=== PATIENT | male | born 1945 | race Caucasian/White ===

== ENCOUNTER → 2016-03-13 | Outpatient (CLI) | payer BC ==
--- NOTE | 2016-03-13 11:04 | DIAGNOSTIC IMAGING REPORT ---
ULTRASOUND TESTES AND SCROTUM CLINICAL HISTORY: Testicular pain. COMPARISON STUDY: Scrotal ultrasound dated 11/11/2007. TECHNIQUE: Real-time, grayscale, and color Doppler sonography of the testes and scrotum is performed. Images are reviewed in the transverse and longitudinal planes. FINDINGS: The testes are normal in size and homogeneous in echotexture. The right testis measures 5.0 x 2.4 x 3.4 cm and the left testis measures 5.2 x 2.4 x 3.3 cm. No intratesticular mass is seen. Testicular blood flow is normal and symmetric. Normal Doppler waveforms are identified in both testes. The epididymal heads are normal in appearance. The right epididymal head measures 1.0 cm in length and the left epididymal head measures 1.1 cm in length. A 9 mm right epididymal head cyst is incidentally noted. No varicocele or hydrocele is seen. IMPRESSION: Unremarkable sonographic assessment of the testes and scrotum. Electronically signed by: Rubén Manuel M.D. 03/13/2016 11:02 AM Dictated Date/Time: 03/13/2016 11:00 AM
== END | disposition home or self-care (01) ==
LOC: C.ULTRBC 10:15
PROVIDERS: ATTEND Urology
DX: N50.819 Testicular pain, unspecified (principal)

== ENCOUNTER → 2017-03-11 | Outpatient (CLI) | payer BC ==
[2017-03-11 11:13] LABS: HEMATOCRIT 48.2 % (42-52); HEMOGLOBIN 16.9 g/dL (14.0-18.0); MEAN CELL VOLUME 85.5 fL (80-100); MEAN CORPUSCULAR HGB CONC 35.1 g/dl (32-36); PLATELET COUNT 155 K/uL (130-400); RED CELL DISTRIBUTION WIDTH CV 14.7 % (11.5-14.5); RED CELL DISTRIBUTION WIDTH SD 45.6 fL (36.4-46.3); WHITE BLOOD COUNT 4.19 K/uL (4.8-10.8)
[2017-03-11 11:35] LABS: ALT/SGPT 51 U/L (12-78); BLOOD UREA NITROGEN 21 mg/dl (7-18); CALCIUM 9.1 mg/dl (8.5-10.1); CARBON DIOXIDE 28 mmol/L (21-32); CREATININE 1.25 mg/dl (0.60-1.40); GLUCOSE 101 mg/dl (70-99); POTASSIUM 4.1 mmol/L (3.5-5.1); SODIUM 141 mmol/L (136-145)
[2017-03-11 11:46] LABS: CHOLESTEROL 175 mg/dl (0-200); LDL CHOLESTEROL CALCULATED 100 mg/dl
== END | disposition home or self-care (01) ==
LOC: C.LABBC 07:56
PROVIDERS: ATTEND Family Medicine
DX: R03.0 Elevated blood-pressure reading, without diagnosis of hypertension (principal); N40.0 Benign prostatic hyperplasia without lower urinary tract symptoms; E78.2 Mixed hyperlipidemia; R97.20 Elevated prostate specific antigen [PSA]

== ENCOUNTER → 2017-03-25 | Outpatient (CLI) | payer BC ==
--- NOTE | 2017-03-25 08:46 | DIAGNOSTIC IMAGING REPORT ---
SOFT TISS HEAD/NECK-THYROID HISTORY: Thyroid enlargement NON TOXIC GOITER, THRYOID ENLARGEMENT COMPARISON: None. FINDINGS: Right lobe: Maximum dimension 3.9 cm. 5 mm low suspicion nodule. Left lobe: Maximum dimension 3.6 cm. No significant nodularity. Isthmus: No nodules. IMPRESSION: 1. 5 mm lower pole right thyroid nodule. 2. All remaining components of the study are normal. 3. A 12 month follow-up is suggested. The above report was generated using voice recognition software. It may contain grammatical, syntax or spelling errors. Electronically signed by: Etienne Jarvis M.D. 03/25/2017 8:44 AM Dictated Date/Time: 03/25/2017 8:41 AM
== END | disposition home or self-care (01) ==
LOC: C.ULTRBC 08:19
PROVIDERS: ATTEND Family Medicine
DX: E04.9 Nontoxic goiter, unspecified (principal)

== ENCOUNTER 2019-08-06 11:35 | Observation (INO) ==
--- NOTE | 2019-08-06 11:59 | Emergency Department Note ---
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 Patient was playing tennis with his friend and was charging the net and tripped and fell forward. He got his 1 hand out but was carrying the racquet and the other hand and hit his head off the ground. He had about 30 seconds worth of loss of consciousness. Following that he has been confused and does not remember the events of the trauma or the car ride over. He denies any headache, change in vision, neck pain, chest pain, belly pain or any extremity pain. He notes he does have some mild pain on the right head when he holds a bandage to his laceration. This occurred somewhere around 10:00. His friend did take him home and he cleaned him up and brought him to the ER after [employer] referred him in. ROS: See above HPI for pertinent positives & negatives. A total of 10 systems reviewed and were otherwise negative. PAST MEDICAL HISTORY:See Below PAST SURGICAL HISTORY:See Below FAMILY HISTORY:See Below SOCIAL HISTORY:See Below HOME MEDICATIONS:See Below ALLERGIES:See Below VITALS:See Below PHYSICAL EXAMINATION: GENERAL: alert, well appearing, well nourished, no distress, non-toxic HEAD: 3 cm laceration above the right eyebrow. Bruising around right lateral orbit EYE EXAM: normal conjunctiva, PERRL and EOM's grossly intact OROPHARYNX: no exudate, no erythema, lips, buccal mucosa, and tongue normal and mucous membranes are moist NECK: supple, no nuchal rigidity, no adenopathy, non-tender CHEST: stable to compression anteriorly and posteriorly LUNGS: clear to auscultation. Normal chest wall mechanics HEART: no murmurs, S1 normal and S2 normal ABDOMEN: abdomen soft, non-tender, normo-active bowel sounds, no masses, no rebound or guarding. PELVIS: stable to compression anteriorly and posteriorly BACK: Back is symmetrical on inspection and there is no deformity, no midline tenderness, no CVA tenderness. UPPER EXTREMITIES: full active and passive range of motion of all joints without tenderness to palpation LOWER EXTREMITIES: full active and passive range of motion of all joints without tenderness to palpation NEURO EXAM: Oriented to person, place and guesses on the year, does not remember the fall were any events thereafter as he has continued repeat of questioning cranial nerves II-XII grossly intact, normal speech, no gross weakness of arms, no gross weakness of legs. GCS: 14. MEDICAL DECISION MAKING: Patient is a 73-year-old male who presents the ER following a fall playing tennis with a positive loss consciousness. He has continually been confused si nce the incident. IV was status water was obtained. Labs show no significant leukocytosis or anemia. BMP with LFTs bilirubin and troponin was negative. UA was unremarkable. CT of the head, face and cervical spine showed no acute fractures. Chest x-ray unremarkable. Laceration was repaired by myself at the bedside using 2 sutures. Patient still has continued repetitive questioning. He does not remember getting a CT scan of his head. He does not remember the laceration on his face. 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 Daughter and friend do not believe that the daughter will be able to take care of both him and the mother. Discussed with the hospitalist for observation. Triage Nursing notes reviewed. Prior medical records reviewed Vital Signs: reviewed and remarkable for hypertension Differential diagnosis: Differential diagnoses include major intracranial, cervical, spinal, thoracic, abdominal, pelvic and neurologic injury. Fracture, contusion, sprain, strain, laceration, abrasions included as well. ER treatment provided: See below Diagnostics interpreted by me: ECG: Sinus rhythm rate 82 Right axis Incomplete right bundle Normal QTC Cardiac Monitoring: An order was placed for continuous cardiac monitoring. The monitor shows a rate of 90 with sinus rhythm. Laboratory studies: As stated above and show below. Imaging studies: CT of the head, cervical spine and facial bones show no acute fractures. Portable AP upright 1 view of the chest shows no focal infiltrate Consultation(s): Discussed with Dr. Theodore for observation. ED COURSE: Procedures: Laceration repair of right face: Wound measured 2.5cm. Lidocaine with epinephrine was infiltrated into the wound margins to provide local anesthesia. The wound was inspected for foreign bodies, tendon, artery and bone or joint involvement and none was found. The wound was irrigated with saline and closed with 2 suture(s) using 5.0 nylon sutures and a clean dressing was applied. The patient tolerated the procedure well. PDMP:reviewed and no issues Critical Care: None Past Med/Surg History Social History Preferred Language: Italian Communication Ability: Effective Concert Pianist Required: No Beliefs That Will Affect Care: None Current Living Situation: Spouse and Family Current Living Situation Comment: lives with and daughter Other Information That Helps Us Care for You: No Feels Safe at Home: Yes Safety Concerns: Feels Safe At This Time Smoking Status: Never smoker Do You Dip or Chew Tobacco: No ; Second Hand Exposure: No ; Tobacco Cessation Education Requested by Patient: No Hx Alcohol Use: No Hx Substance Use: No Allergies Allergies Allergy/AdvReac Type Severity Reaction Status Date / Time No Known Allergies Allergy Unverified 08/06/19 13:55 Home Meds Home Medications Medication Instructions Recorded Confirmed atorvastatin [Lipitor] 40 mg PO HS 08/06/19 08/06/19 lisinopril [Zestril] 10 mg PO HS 08/06/19 08/06/19 [id number] 1 tab PO HS 08/06/19 08/06/19 [Multivitamin 50 Plus] tamsulosin [Flomax] 0.4 mg PO HS 08/06/19 08/06/19 Results & Data (ED) Vital Signs Vital Signs - 24 hr 08/06/19 11:37 08/06/19 13:35 08/06/19 15:10 Temperature 36.5 C Temperature Source Oral Pulse Rate 100 H 92 H Pulse Rate [Apical] 82 Pulse Rate from SpO2 Sensor 91 H Pulse Rhythm Regular Pulse Rhythm [Apical] Regular Pulse Strength Normal Respiratory Rate 16 18 17 Respiratory Effort / Characteristics Non-Labored Non-Labored Spontaneous Respiratory Depth Normal Normal Respiratory Pattern Regular Regular Blood Pressure 182/95 H Blood Pressure [Right Arm] 160/94 H Blood Pressure Mean 124 Blood Pressure Mean [Right Arm] 116 Blood Pressure Position Sitting Pulse Oximetry 97 98 98 Oxygen Delivery Method Room Air Room Air Sepsis Recent Fever Within 48 Hours No Sepsis Action Taken by Nursing No Action Required Laboratory Data Result diagrams: 08/06/19 12:10 08/06/19 12:10 Lab Results 08/06/19 08/06/19 08/06/19 Range/Units 12:10 12:10 13:25 WBC 7.42 (4.8-10.8) K/uL RBC 5.53 (4.7-6.1) M/uL Hgb 16.2 (14.0-18.0) g/dL Hct 46.7 (42-52) % MCV 84.4 (80-100) fL MCH 29.3 (25-34) pg MCHC 34.7 (32-36) g/dL RDW Std Deviation 44.3 (36.4-46.3) fL RDW Coeff of Per 14.3 (11.5-14.5) % Plt Count 160 (130-400) K/uL MPV 9.1 (7.4-10.4) fL Immature Gran % (Auto) 0.3 % Neut % (Auto) 82.2 % Lymph % (Auto) 12.0 % [place] % (Auto) 4.7 % Eos % (Auto) 0.5 % Baso % (Auto) 0.3 % Immature Gran # (Auto) 0.02 (0.00-0.02) K/uL Neut # (Auto) 6.10 (1.4-6.5) K/uL Lymph # (Auto) 0.89 L (1.2-3.4) K/uL [place] # (Auto) 0.35 (0.11-0.59) K/uL Eos # (Auto) 0.04 (0-0.5) K/uL Baso # (Auto) 0.02 (0-0.2) K/uL Sodium 141 (136-145) mmol/L Potassium 3.7 (3.5-5.1) mmol/L Chloride 107 (98-107) mmol/L Carbon Dioxide 27 (21-32) mmol/L Anion Gap 7.0 (3-11) BUN 21 H (7-18) mg/dl Creatinine 1.27 (0.6-1.4) mg/dl Est Cr Clr Drug Dosing 46.0 ml/min Est GFR ( Amer) 64.1 Est GFR (Non-Af Amer) 55.3 BUN/Creatinine Ratio 16.8 (10-20) Glucose 141 H (70-99) mg/dl Calcium 9.6 (8.5-10.1) mg/dl Total Bilirubin 0.5 (0.2-1) mg/dl AST 26 (15-37) U/L ALT 43 (12-78) U/L Alkaline Phosphatase 40 L (45-117) U/L Troponin I < 0.015 (0-0.045) ng/ml Total Protein 7.3 (6.4-8.2) gm/dl Albumin 3.9 (3.4-5.0) gm/dl Globulin 3.4 (2.5-4.0) gm/dl Albumin/Globulin Ratio 1.2 (0.9-2) Urine Color Yellow Urine Appearance Clear (Clear) Urine pH 6.0 (4.5-7.5) Ur Specific [place] 1.021 (1.000-1.030) Urine Protein Negative (Negative) Urine Glucose (UA) Negative (Negative) Urine Ketones Negative (Negative) Urine Blood Negative (Negative) Urine Nitrite Negative (Negative) Urine Bilirubin Negative (Negative) Urine Urobilinogen Negative (Negative) Ur Leukocyte Esterase Negative (Negative) Administered Medications Discontinued Medications Sodium Chloride (Nss 1000ml) 1,000 mls @ 999 mls/hr IV .Q1H1M BC Stop: 08/06/19 13:00 Last Infusion: 08/06/19 13:25 Dose: 0 mls/hr Documented by: [id number] Admin: 08/06/19 12:20 Dose: 999 mls/hr Documented by: [id number] Lidocaine/Epinephrine (Buffered Xylocaine/Epinephrine 1%) Confirm Administered Dose 20 ml .ROUTE .STK-MED ONE Stop: 08/06/19 13:26 Last Admin: 08/06/19 14:07 Dose: 20 ml Documented by: [id number] Discharge Plan Visit Data Chief Complaint: Laceration/Cut (Suture/Dermabond) Stated Complaint: HEAD LACERATION ABOVE RT EYE AND RT HAND INJURY ED Provider: [place] Valentine Discharge Problem: Concussion, Laceration, Fall, Acute confusion Forms Stand Alone Forms: My [facility] Prescriptions Prescriptions: No Action atorvastatin [Lipitor] 40 mg tablet 40 mg PO HS RF: 0 tamsulosin [Flomax] 0.4 mg capsule 0.4 mg PO HS RF: 0 lisinopril [Zestril] 10 mg tablet 10 mg PO HS RF: 0 Multivitamin 50 Plus Tablet 1 tab PO HS RF: 0 Discharge Problem: Concussion Qualifiers: Encounter type: initial encounter Loss of consciousness presence/duration: with LOC of 30 min or less Qualified Code(s): S06.0X1A - Concussion with loss of consciousness of 30 minutes or less, initial encounter Fall Qualifiers: Encounter type: initial encounter Qualified Code(s): W19.XXXA - Unspecified fall, initial encounter
[2019-08-06] MEDS ORDERED: SODIUM CHLORIDE 0.9% 1000ML 1,000 ML IV SCH (12:00)
[2019-08-06 12:18] LABS: Basophils # (auto) 0.02 K/uL (0-0.2); Basophils % (auto) 0.3 %; Eosinophils # (auto) 0.04 K/uL (0-0.5); Eosinophils % (auto) 0.5 %; Hematocrit (blood only) 46.7 % (42-52); Hemoglobin 16.2 g/dL (14.0-18.0); Immature Granulocytes # (auto) 0.02 K/uL (0.00-0.02); Immature Granulocytes % (auto) 0.3 %; Lymphocytes # (auto) 0.89 K/uL (1.2-3.4); Mean Corpuscular Hemoglobin 29.3 pg (25-34); Mean Corpuscular Hgb Conc 34.7 g/dL (32-36); Mean Corpuscular Volume 84.4 fL (80-100); Mean Platelet Volume 9.1 fL (7.4-10.4); Monocytes # (auto) 0.35 K/uL (0.11-0.59); Monocytes % (auto) 4.7 %; Neutrophils % (auto) 82.2 %; Platelet Count 160 K/uL (130-400); RDW Coefficient of Variation 14.3 % (11.5-14.5); RDW Standard Deviation 44.3 fL (36.4-46.3); Red Blood Count 5.53 M/uL (4.7-6.1); White Blood Count 7.42 K/uL (4.8-10.8)
--- NOTE | 2019-08-06 12:33 | XRay Report ---
XR chest 1V portable CLINICAL HISTORY: fall trauma. Pain. COMPARISON STUDY: No previous studies for comparison. FINDINGS: Minimal atelectasis medial left base. Lungs otherwise appear clear. Diaphragms are smooth. IMPRESSION: Minimal atelectasis medial aspect left base. Otherwise negative study. ACT 112: Negative or not required by law. The above report was generated using voice recognition software. It may contain grammatical, syntax or spelling errors. Electronically signed by: Etienne Jarvis M.D. 08/06/2019 12:32 PM
[2019-08-06 12:34] LABS: Alanine Aminotransferase 43 U/L (12-78); Albumin Level 3.9 gm/dl (3.4-5.0); Aspartate Aminotransferase 26 U/L (15-37); BUN Creatinine Ratio 16.8 (10-20); Blood Urea Nitrogen 21 mg/dl (7-18); Calcium 9.6 mg/dl (8.5-10.1); Carbon Dioxide 27 mmol/L (21-32); Chloride 107 mmol/L (98-107); Est GFR (African American) 64.1; Est GFR (Non-African American) 55.3; Glucose 141 mg/dl (70-99); Potassium 3.7 mmol/L (3.5-5.1); Sodium 141 mmol/L (136-145)
[2019-08-06 12:38] LABS: Albumin Globulin Ratio 1.2 (0.9-2); Alkaline Phosphatase 40 U/L (45-117); Bilirubin,Total 0.5 mg/dl (0.2-1); Globulin 3.4 gm/dl (2.5-4.0); Total Protein 7.3 gm/dl (6.4-8.2); Troponin I < 0.015 ng/ml (0-0.045)
--- NOTE | 2019-08-06 12:39 | CT Scan Report ---
CT head/brain wo con CT DOSE: HISTORY: Trauma. fall TECHNIQUE: Multiaxial CT images of the head were performed without the use of intravenous contrast. A dose lowering technique was utilized adhering to the principles of ALARA. Comparison: None. Findings: The paranasal sinuses and mastoid air cells are clear. The calvarium and skull base are int act. The ventricles and sulci are within normal limits. There is no mass, hematoma, midline shift, or acute infarct. Impression: No acute intracranial abnormality. ACT 112: Negative or not required by law. The above report was generated using voice recognition software. It may contain grammatical, syntax or spelling errors. Electronically signed by: Etienne Jarvis M.D. 08/06/2019 12:38 PM
--- NOTE | 2019-08-06 12:42 | CT Scan Report ---
CT cervical spine wo con CT DOSE: 963.19 mGy.cm HISTORY: fall hit face TECHNIQUE: Multiaxial CT images of the cervical spine were performed and reformatted in the sagittal and coronal plane without the use of contrast. A dose lowering technique was utilized adhering to th e principles of ALARA. COMPARISON: None. FINDINGS: No fractures. No subluxation. Prevertebral soft tissues and the C1-C2 interval are intact. No pneumothorax. IMPRESSION: No fractures within the cervical spine. Mild degenerative change. ACT 112: Negative or not required by law. The above report was generated using voice recognition software. It may contain grammatical, syntax or spelling errors. Electronically signed by: Etienne Jarvis M.D. 08/06/2019 12:40 PM
--- NOTE | 2019-08-06 12:46 | CT Scan Report ---
CT facial bones wo con CT DOSE: HISTORY: Trauma. Pain. fall hit face TECHNIQUE: Multiaxial CT images of the maxillofacial region were performed and reformatted in the cor onal plane without the use of contrast. A dose lowering technique was utilized adhering to the princ iples of [place]. COMPARISON: None. FINDINGS: The visualized cervical spine, skull base, pterygoid plates, nasal bones, lamina papyracea, orbital floors, mandible, and zygomatic arches are intact. No fractures. The orbits are unremarkable . IMPRESSION: No fractures within the maxillofacial region. ACT 112: Negative or not required by law. The above report was generated using voice recognition software. It may contain grammatical, syntax or spelling errors. Electronically signed by: Etienne Jarvis M.D. 08/06/2019 12:45 PM
[2019-08-06] MEDS ORDERED: LIDO/EPINEPHRINE/SOD BICARB 20 ML VIAL ONE (13:25)
[2019-08-06 13:36] LABS: Appearance Urine Clear (Clear); Bilirubin Urine Negative (Negative); Blood Urine Negative (Negative); Color Urine Yellow; Glucose Urine UA Negative (Negative); Ketones Urine Negative (Negative); Leukocyte Esterase Urine Negative (Negative); Nitrite Urine Negative (Negative); Protein Urine Negative (Negative); Specific Gravity Urine 1.021 (1.000-1.030); Urobilinogen Urine Negative (Negative)
--- NOTE | 2019-08-06 14:36 | History & Physical Report ---
Date of Service August 06, 2019 Assessment & Plan (1) Concussion: No diphenhydramine (pt usually takes this OTC) Generalized confusion and amnesia from his fall but this appears to be improving and no other symptoms of concussion Observe on med/surg overnight. Likely discharge tomorrow pending PT assessment of balance. (2) Laceration: Remove stitches in 7-10 days with PCP or return to ER (3) Hypertension: Continue Lisinopril 10mg PO HS (4) Benign prostatic hyperplasia: Continue tamsulosin 0.4mg PO daily (5) Hyperlipidemia: Continue atorvastatin 40mg PO HS Admission and Anticipated Discharge Date Admission Date: 08/06/2019 Anticipated date of discharge: 08/07/19 History of Present Illness Chief Complaint: Fall Primary Care Provider: Ronny Reyes MD Asif Rodriguez is a 73 year old female who presents to the ER after a fall during a tennis match. The patients last memory is just playing tennis and he doesn't remember anything of the fall. He does remember coming to the emergency room. His friend who he was playing tennis with reports the patient was in his usual state of health but had to reach out for a shot and tripped and fell forward. Occurred around 10am. He does note they were playing tennis in their masks at the time. The patient fell onto his hands but could not stop himself going down further and hitting the right side of his head on the concrete tennis surface. He lost consciousness for around 30 seconds. He has since been confused and not remembering conversation they have been having such as remembering the laceration repair he has just had in the ER. No headache, change in vision, neck pain, chest, abdominal, wrist, groin or other extremity pain. 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 Allergies Allergy/AdvReac Type Severity Reaction Status Date / Time No Known Allergies Allergy Unverified 08/06/19 13:55 Home Medications Home Medications Medication Instructions Recorded Confirmed Type atorvastatin [Lipitor] 40 mg PO HS 08/06/19 08/06/19 History lisinopril [Zestril] 10 mg PO HS 08/06/19 08/06/19 History [id number] 1 tab PO HS 08/06/19 08/06/19 History [Multivitamin 50 Plus] tamsulosin [Flomax] 0.4 mg PO HS 08/06/19 08/06/19 History Past Med/Surg History Medical History (Updated 08/07/19 @ 06:58 by Tristan Theodore MD) Benign prostatic hyperplasia Hyperlipidemia Hypertension Social History Preferred Language: Icelandic Communication Ability: Effective Leather Products Supervisor Required: No Beliefs That Will Affect Care: None Current Living Situation: Spouse and Family Current Living Situation Comment: lives with and daughter Other Information That Helps Us Care for You: No Feels Safe at Home: Yes Safety Concerns: Feels Safe At This Time Smoking Status: Never smoker Do You Dip or Chew Tobacco: No ; Second Hand Exposure: No ; Tobacco Cessation Education Requested by Patient: No Hx Alcohol Use: No Hx Substance Use: No Review of Systems Review of Systems: All systems reviewed & are unremarkable except as noted in HPI & below Physical Exam Constitutional: WD/WN, vitals as above Eyes: PERRL, conjunctivae normal, anicteric sclerae normal visual dowling by confrontation, normal accommodation and EOM intact bilaterally; no nystagmus Right raccoon eye with repaired laceration near lateral eyebrow ENMT: external ear and nose normal, oropharynx normal Neck: trachea midline, no thyromegaly Respiratory: normal respiratory effort, lungs clear to auscultation Cardiovascular: RRR, no murmur, no edema Gastrointestinal (Abdomen): normal bowel sounds, soft, nontender, no hepatosplenomegaly Musculoskeletal: no cyanosis or clubbing, extremities motor strength 5/5 Specifically no wrist pain on movement or palpation b/l, no groin pain on hip int/ext rotation. No central spinal back pain on palpation Neurologic: CN's II-XI intact bilaterally, moves all extremities and awake; no focal motor deficits and not confused Speech / Cognition: + abnormal cognition (family and friend report memory improving); normal speech Motor/Sensory: no tremor, no pronator drift and no sensory deficit Psychiatric: A+Ox3, euthymic affect Genitourinary: no CVA tenderness Results & Data Results & Data ([facility]) Vital Signs (Past 12 Hours) Vital Signs Temp Pulse Pulse Resp BP BP Pulse Ox 08/06/19 13:35 82 18 160/94 H 98 08/06/19 11:37 36.5 C 100 H 16 182/[address] head/brain wo con Impression: No acute intracranial abnormality. CT facial bones wo con IMPRESSION: No fractures within the maxillofacial region. XR chest 1V portable IMPRESSION: Minimal atelectasis medial aspect left base. Otherwise negative study. CT cervical spine wo con IMPRESSION: No fractures within the cervical spine. Mild degenerative change. ECG Indication: syncope Rate (beats per minute): 82 Rhythm: normal sinus Findings: + other (right axis deviation) and + 1st degree AV block; no acute ischemic change Comparison ECG Date: no prior available Code Status & VTE Plan Code Status Full VTE Prophylaxis Plan VTE Prophylaxis will be ordered: No PG Care Time/CCT Total # of Minutes Spent Total Time Spent with Patient: Total time spent is greater than 50% in coordination of care (as documented) at patient's floor/unit and/or counseling patient: Coding Level of Care Code 31171 OBS Care - Level 2 Diagnoses Concussion S06.0X9A Laceration Hypertension I10 Benign prostatic hyperplasia N40.0 Hyperlipidemia E78.5
[2019-08-06] MEDS ORDERED: POLYETHYLENE (MIRALAX) 17 GM PACK PO PRN (16:35)
[2019-08-06] MEDS: ACETAMINOPHEN 325 MG TAB PO PRN ×2 (17:55→23:43)
[2019-08-06] MEDS ORDERED: TAMSULOSIN HCL 0.4 MG CAP PO SCH (21:00)
[2019-08-06] MEDS ORDERED: CEROVITE ADV FORMULA TAB PO SCH (21:00)
[2019-08-06] MEDS ORDERED: lisinopriL 10 MG TAB PO SCH (21:00)
[2019-08-06] MEDS ORDERED: ATORVASTATIN 40 MG TAB PO SCH (21:00)
[2019-08-07] MEDS: ACETAMINOPHEN 325 MG TAB PO PRN (06:12)
--- NOTE | 2019-08-07 08:20 | Hospitalist Progress Note ---
Date of Service August 07, 2019 Assessment & Plan (1) Concussion: No diphenhydramine (pt usually takes this OTC) Generalized confusion and amnesia from his fall but this appears to be improving and no other symptoms of concussion Observe on med/surg overnight. Likely discharge tomorrow pending PT assessment of balance. (2) Laceration: Remove stitches in 7-10 days with PCP or return to ER (3) Hypertension: Continue Lisinopril 10mg PO HS (4) Benign prostatic hyperplasia: Continue tamsulosin 0.4mg PO daily (5) Hyperlipidemia: Continue atorvastatin 40mg PO HS Admission and Anticipated Discharge Date Admission Date: August 06, 2019 Results & Data Results & Data ([facility] [place]) Vital Signs (Past 12 Hours) Vital Signs Temp Pulse Resp BP Pulse Ox 08/07/19 07:57 98.2 F 79 18 157/84 H 95 08/06/19 23:45 98.2 F 79 20 160/88 H 97 PG Care Time/CCT Total # of Minutes Spent Total Time Spent with Patient: Total time spent is greater than 50% in coordination of care (as documented) at patient's floor/unit and/or counseling patient: Coding Diagnoses Concussion S06.0X1A Encounter type: initial encounter Loss of consciousness presence/duration: with LOC of 30 min or less Laceration Hypertension I10 Benign prostatic hyperplasia N40.0 Hyperlipidemia E78.5 (1) Concussion Encounter type: initial encounter Loss of consciousness presence/duration: with LOC of 30 min or less Qualified Code(s): S06.0X1A - Concussion with loss of consciousness of 30 minutes or less, initial encounter
--- NOTE | 2019-08-07 17:31 | Discharge Summary ---
Date of Service August 07, 2019 Admission HPI Per Admitting Provider Asif Rodriguez is a 73 year old female who presents to the ER after a fall during a tennis match. The patients last memory is just playing tennis and he doesn't remember anything of the fall. He does remember coming to the emergency room. His friend who he was playing tennis with reports the patient was in his usual state of health but had to reach out for a shot and tripped and fell forward. Occurred around 10am. He does note they were playing tennis in their masks at the time. The patient fell onto his hands but could not stop himself going down further and hitting the right side of his head on the concrete tennis surface. He lost consciousness for around 30 seconds. He has since been confused and not remembering conversation they have been having such as remembering the laceration repair he has just had in the ER. No headache, change in vision, neck pain, chest, abdominal, wrist, groin or other extremity pain. 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 Principal Diagnosis concussion amnesia associated with closed head injury facial contusion and laceration Discharge Exam the pt has ecchymosis surrounding right eye mostly now lower, with a crusted sutured laceration to the lateral orbital area around 10-11 oclock position. no lid lag or sysmetic light reflex. he is awake alert and appropriate. some small abrasions on right lateral knee Discharge Data Allergies Allergy/AdvReac Type Severity Reaction Status Date / Time No Known Allergies Allergy Unverified 08/06/19 13:55 Consultations 08/06/19 14:19 ED Decision to Admit Stat Ordered Studies 08/06/19 11:54 CT cervical spine wo con Stat CT facial bones wo con Stat CT head/brain wo con Stat Hospital Course (1) Concussion: Generalized confusion and amnesia from his fall but this has resolved and no other symptoms of concussion given information of concussion PT assessment of balance to be intact. (2) Laceration: Remove stitches in 7-10 days with PCP or return to ER (3) Hypertension: Continue Lisinopril 10mg PO HS (4) Benign prostatic hyperplasia: Continue tamsulosin 0.4mg PO daily (5) Hyperlipidemia: Continue atorvastatin 40mg PO HS Total Time Total Time Spent Total Time Spent (In Minutes): It required greater than 30 minutes to prepare this patient for discharge Discharge Plan Discharge Items Patient Disposition: Home - Self-Care Reason For Visit: CONCUSSION Discharge Diagnosis: concussion facial contusion and laceration amnesia Activity: Per Instructions section Activity Comment: resume activity in a low level and slowly increase Non-emergency contact: Primary Care Provider Call non-emergency contact if: you have any medication questions and your symptoms worsen Follow-up/Referrals: Ronny Reyes MD [Primary Care Provider] - 08/11/19 10:30 am (Please, follow up at Dr. Reyes's office on WednesdayAugust 10 at 10:30 am. *If you need to change this appointment, call the office at [phone].) Diet: Regular Addtl Attending Provider Instructions: rest and hydrate for your wound keep clean and dry, wash with soap and water daily, consider using antibiotic ointment especially in the days pre ceeding your suture removal Pending Studies at Discharge: No Stand-Alone Forms: My [facility] [employer], Smoking Cessation Medications and DC Order Prescriptions: Continued atorvastatin [Lipitor] 40 mg tablet 40 mg PO HS RF: 0 tamsulosin [Flomax] 0.4 mg capsule 0.4 mg PO HS RF: 0 lisinopril [Zestril] 10 mg tablet 10 mg PO HS RF: 0 Multivitamin 50 Plus Tablet 1 tab PO HS RF: 0 Discharge Orders: Discharge Order (Routine); Ordered 08/07/19 Ordered By: Herminio Gold/Other Patient Handouts: Concussion, ED Laceration All Closures Admission Data Admit Date/Time: 08/06/19 14:34 Attending Provider: Herminio Campos Admit Provider: Tristan Theodore Primary Care Provider: Ronny Reyes Other Providers: Tristan Theodore Other Interventions: Discharge Summary Assessment (RN) Last Done: 08/07/19 11:32 DC Date/Time DO NOT enter until pt leaves facility: 08/07/19 12:41 Coding Level of Care Code D/C Day Management >30 mins Diagnoses Concussion S06.0X1A Encounter type: initial encounter Loss of consciousness presence/duration: with LOC of 30 min or less Laceration Hypertension I10 Benign prostatic hyperplasia N40.0 Hyperlipidemia E78.5
== END 2019-08-07 12:41 | disposition home or self-care (01) ==
LOC: 2N 11:35 → ED 11:35 → SUATTDRO 14:34 → 2N 15:59